=== PATIENT | female | born 1950 | race Hispanic/Latino ===

== ENCOUNTER → 2024-11-19 | Outpatient (CLI) | payer OTHER ==
--- NOTE | 2024-11-20 14:39 | HMCIMG ---
EXAM: CT FOOT RIGHT WITHOUT IV CONTRAST CLINICAL HISTORY: Fracture of the right talus TECHNIQUE: Axial CT images of the foot were obtained without IV contrast administration. Multiplanar reconstructions. The protocol utilizes one or more of the following dose reduction techniques: automated exposure control, adjustment of mA and/or kV according to patient size, and/or use of iterative reconstruction technique. CONTRAST: No IV contrast administration. COMPARISON: No comparison study available. FINDINGS: BONES: Comminuted fracture of distal fibula. Transverse comminuted fracture through the neck of the talus, as seen on image number 30, series 6. JOINTS: No joint effusion mentioned. MUSCLES: Surrounding soft tissue edema is present. SOFT TISSUES: Soft tissue edema is present, surrounding the comminuted fracture of the distal fibula. Consider MRI for further follow-up. IMPRESSION: 1. Transverse comminuted fracture through the neck of the talus. Consider MRI for further follow-up. 2. Comminuted fracture of distal fibula with surrounding soft tissue edema. /[place]
== END | disposition home or self-care (01) ==
LOC: RAH 13:25
PROVIDERS: ATTEND Orthopaedic Surgery
DX: S92.111A Displaced fracture of neck of right talus, initial encounter for closed fracture (principal); S82.831A Other fracture of upper and lower end of right fibula, initial encounter for closed fracture; S92.144A Nondisplaced dome fracture of right talus, initial encounter for closed fracture; X58.XXXA Exposure to other specified factors, initial encounter; Y93.89 Activity, other specified; Y92.89 Other specified places as the place of occurrence of the external cause; Y99.8 Other external cause status
CPT/HCPCS: 73700

== ENCOUNTER → 2024-11-29 | Outpatient (CLI) | payer OTHER ==
--- NOTE | 2024-11-29 12:13 | HMCIMG ---
ANKLE COMP 3VWS LT REASON: PAIN IN LEFT FOOT TECHNIQUE: 3 views were obtained. FINDINGS: There is no evidence of fracture or dislocation. There is no joint effusion. The soft tissues appear unremarkable. There is no evidence of a radiopaque foreign body. There is osteopenia. IMPRESSION: No acute findings. Osteopenia
--- NOTE | 2024-11-29 13:19 | HMCIMG ---
EXAM: XR Left Foot, 3 Views. CLINICAL HISTORY: 74 year old female with pain in left foot. COMPARISON: None provided. FINDINGS: BONES: No acute fracture or focal osseous lesion. JOINTS: No dislocation. The joint spaces are normal. SOFT TISSUES: The soft tissues are unremarkable. IMPRESSION: 1. No acute osseous abnormality. /[place]
--- NOTE | 2024-11-29 13:40 | HMCIMG ---
EXAM: XR Left Tibia and Fibula, 4 Views. CLINICAL HISTORY: 74-year-old female with pain in the left foot. COMPARISON: None provided. FINDINGS: BONES: There is an oblique fracture of the midshaft of the fibula with some comminution noted. JOINTS: No dislocation. The joint spaces are normal. SOFT TISSUES: There is soft tissue edema. IMPRESSION: 1. Oblique fracture of the midshaft of the fibula with some comminution and associated soft tissue edema. /[place]
== END | disposition home or self-care (01) ==
LOC: RAH 08:49
PROVIDERS: ATTEND Family Medicine
DX: S82.432A Displaced oblique fracture of shaft of left fibula, initial encounter for closed fracture (principal); S82.452A Displaced comminuted fracture of shaft of left fibula, initial encounter for closed fracture; M85.872 Other specified disorders of bone density and structure, left ankle and foot; R60.0 Localized edema; M25.572 Pain in left ankle and joints of left foot; M79.605 Pain in left leg; M79.672 Pain in left foot; X58.XXXA Exposure to other specified factors, initial encounter; Y93.89 Activity, other specified; Y92.89 Other specified places as the place of occurrence of the external cause; Y99.8 Other external cause status
CPT/HCPCS: 73590; 73610; 73630

== ENCOUNTER → 2025-01-04 | Outpatient (CLI) | payer OTHER ==
--- NOTE | 2025-01-05 10:35 | HMCIMG ---
EXAM: CT Ankle, bilateral, without IV contrast. CLINICAL HISTORY: Nondisplaced dome fracture of right talus, initial encounter for closed fra TECHNIQUE: Axial computed tomography images of the bilateral ankle without intravenous contrast. CONTRAST: without COMPARISON: None provided. FINDINGS: BONES: Diffuse osteopenia in the bones. Old fracture of the neck of the right talus and distal end of the fibula with few fracture fragments. Old linear undisplaced fracture of the medial malleolus of the left tibia. No aggressive appearing osseous lesion. No periosteal reaction evident. JOINTS: Mild right joint effusion. The joint spaces appear within normal limits. No dislocation. SOFT TISSUES: No radiopaque foreign body is seen. No soft tissue fluid collection. IMPRESSION: 1. No acute osseous injury. 2. Old fractures of the right talus neck and distal fibula with fracture fragments, and old linear undisplaced fracture of the left medial malleolus. 3. Mild right ankle joint effusion. /[place]
== END | disposition home or self-care (01) ==
LOC: RAH 14:27
PROVIDERS: ATTEND Orthopaedic Surgery
DX: S92.144D Nondisplaced dome fracture of right talus, subsequent encounter for fracture with routine healing (principal); M25.571 Pain in right ankle and joints of right foot; M25.471 Effusion, right ankle; M85.871 Other specified disorders of bone density and structure, right ankle and foot; X58.XXXD Exposure to other specified factors, subsequent encounter
CPT/HCPCS: 73700